=== PATIENT | female | born 1960 | race Caucasian/White ===

== ENCOUNTER 2017-06-07 14:24 | Inpatient (IN) | payer OTHER ==
[2017-06-06 22:00] VITALS: BP 127/68
[~2017-06-07] VITALS: Ht 177.8 cm; Wt 218.6 kg
[~2017-06-07 14:24] MED LIST: ALLOPURINOL 10100 M1 PO; ASPIRIN325 PO; ATORVASTATIN CA10 MG PO; COZAAR 50 MG TA50 MG PO; EVISTA TRANSDERM; FLEXERIL PO; GLUCOPHAGE500 MG PO; HYDROCHLOROTHIA25 M1 PO; IMDUR 30 MG TAB30 M1 PO; K-Dur PO; LASIX 40 MG TAB40 M1 PO; LASIX 80 MG TAB80 M1 PO; LEVOTHYROXINE0.2 M1 PO; MAGNES PO; MAGNESIUM OXID200 MG PO; METOPROLOL SUCC25 M1 PO; MOBIC7.5 MG; MOBIC7.5 MG PO; NEURONTIN600 MG PO; NITROGLYCERIN0.4 MG SL; NORCO 10-325 T1 EACH PO; NORCO 5-325 TA1 EACH PO; PERCOCET 10-321 EACH PO; SAVELLA12.5 MG PO; SAVELLA50 MG PO; SYNTHROID300 MCG PO; TEGRETOL XR100 MG PO; ULTRAM 50MG TAB50 MG PO; VERAPAMIL E.R240 M1 PO; VERAPAMIL ER180 MG PO; WELLBUTRIN SR150 MG PO; XANAX 0.25 MG0.25 MG PO; XANAX 0.5 MG0.5 M1 PO; ZINC SULFATE 2220 M1 PO; [UNRECOGNIZED DRUG - OTHER] PO
[2017-06-07 14:26] VITALS: BP 101/50
[2017-06-07 15:02] LABS: HEMATOCRIT 31.9 % (37.0-47.0); MCH 22.6 pg (26.0-34.0); MCHC 31.4 g/dL (28.0-37.0); MCV 71.9 fL (80.0-100.0); MPV 8.3 fl. (7.2-11.1); NUCLEATED RBCS 0 /100WBC; PLATELET COUNT* 224 thou/uL (150-400); RBC 4.44 mil/uL (4.20-5.00); RDW-CV 17.1 % (10.5-14.5); WBC 16.7 thou/uL (4.0-11.0)
[2017-06-07 15:08] LABS: CALCIUM 8.2 mg/dL (8.5-10.1); CREATININE 3.4 mg/dL (0.6-1.3); POTASSIUM 3.3 mmol/L (3.5-5.1)
[2017-06-07 15:10] LABS: APTT 33.9 Seconds (25.0-31.3); INR 1.1; PROTIME 10.4 Seconds (9.20-11.50)
[2017-06-07 15:13] LABS: ALBUMIN 2.3 g/dL (3.4-5.0); TOTAL BILIRUBIN 0.5 mg/dL (<0.1-1.0); TOTAL PROTEIN 6.9 g/dL (6.4-8.2)
--- NOTE | 2017-06-07 15:32 | EKG ---
[place] [address] ELECTROCARDIOGRAM REPORT Name: EDUARDO RICE Room: [facility]#: [id number] Admission: 06/07/17 Attend Phys: Discharge: Date of : 58 Report #: [id number] THIS REPORT FOR: //name// [facility] ED Test Date: 2017-06-07 Test Time: 14:33:10 Pat Name: EDUARDO RICE Department: Room: Gender: F Strawhat Sizer: Jorge BANKS : 1960 Requested By: Gerard Morales Order Number: [id number] Reading MD: Everett Anthony Measurements Intervals [place] Rate: 121 P: CT: QRS: 17 QRSD: 94 T: -6 QT: 343 QTc: 487 Interpretive Statements sinus tachycardia Borderline T abnormalities, inferior leads Borderline prolonged QT interval No previous ECG available for comparison Electronically Signed On 06-07-2017 15:31:56 CDT by Everett Anthony [email or web address] <ELECTRONICALLY SIGNED> By: Everett Anthony MD, [facility] 06/07/17 1531 1433 1433 Everett Anthony MD, FACC /EPI
[2017-06-07 15:35] LABS: ABSOLUTE LYMPHOCYTES 0.7 thou/uL (0.8-5.3); ABSOLUTE MONOCYTES 0.7 thou/uL (0.0-1.2); ABSOLUTE NEUTROPHILS 15.4 thou/uL (1.6-8.1)
[2017-06-07 15:36] LABS: HYPOCHROMASIA 2+; MICROCYTES 2+; PLATELET ESTIMATE ADEQUATE
[2017-06-07 15:37] LABS: ANISOCYTOSIS 1+; OVALOCYTES Occasional; POLYCHROMASIA Occasional
--- NOTE | 2017-06-07 16:07 | NUR ---
PER DR. JOHNSON HOLD FENTANYL DUE TO LOW B/P.
[2017-06-07 18:20] VITALS: BP 89/34
[2017-06-07 18:23] LABS: INFLUENZA A ANTIGEN None Detected (None Detect); INFLUENZA B ANTIGEN None Detected (None Detect)
--- NOTE | 2017-06-07 19:10 | NUR ---
PT ARRIVED ON THE UNIT AT 1825. REPORT GIVEN TO ROMAIN BUTT. ASSESSED PT AND DOCUMENTED. PT IS A&O AND ON 4L . PT IS ON FALL PRECAUTIONS PER FACILITY PROTOCOL. PT C/O PAIN RATED A 7 IN HER BACK. BED IS IN LOW POSITION CALL LIGHT IS IN REACH. FALL CONTRACT AND PT MEDICARE RIGHTS SIGNED.
[2017-06-07 19:30] VITALS: BP 86/47
[2017-06-07 20:30] VITALS: BP 124/60
[2017-06-07 21:00] VITALS: BP 127/68
[2017-06-07 23:00] VITALS: BP 113/87
--- NOTE | 2017-06-07 23:18 | NUR ---
PT UNABLE TO VOID ON BED AL. GILBERT CATHETER PLACED. 1400 MLS OF DRK CLOUDY URINE. UA COLLECTED AND SENT TO LAB.
[2017-06-07 23:22] LABS: URINE BILIRUBIN NEGATIVE (Negative); URINE BLOOD 3+ (Negative); URINE CLARITY CLOUDY; URINE COLOR YELLOW; URINE GLUCOSE-RANDOM NEGATIVE (Negative); URINE KETONES NEGATIVE (Negative); URINE PROTEIN 1+ (Negative); URINE UROBILINOGEN 0.2 E.U./dl (0.2-1.0)
[2017-06-07 23:23] LABS: URINE LEUKOCYTES-REFLEX 3+ (Negative); URINE NITRITE-REFLEX POSITIVE (Negative)
[2017-06-07 23:30] LABS: BACTERIA-REFLEX 1-9 Few /HPF (None Seen); CASTS None Seen /LPF (None Seen); MUCUS None Seen strn/LPF (None Seen); SQUAMOUS 4-10 Moderate /LPF (0-3); URINE RBC >20 Many /HPF (0-2); WBC CLUMPS Few (None Seen)
[2017-06-07 23:31] LABS: AMORPHOUS URATES Moderate /LPF (None Seen)
[2017-06-08] VITALS (18 sets, daily range): BP systolic 83–212; BP diastolic 46–84
--- NOTE | 2017-06-08 04:50 | NUR ---
PT ALERT ORIENTED. UA + FOR UTI. DR MCMAHON NOTIFIED VIA YOU CALL MD. NO NEW ORDERS AT THIS TIME. LEVOPHED AT 5 MCG. TITRATED BETWEEN 4-6 MCG SINCE 1930. SBP LOW 100S. NS GIVEN TIMES 3 LITERS THEN 1 LITER AT 150MLS/HR. THEN TKO. PT TURNS SELF. REFUSED SCDS AND BARIATRIC BED. TELEMETRY SHOWS SR.
[2017-06-08 05:14] LABS: ABSOLUTE BASOPHILS 0.1 thou/uL (0.0-0.2); ABSOLUTE LYMPHOCYTES 1.1 thou/uL (0.8-5.3); ABSOLUTE MONOCYTES 1.9 thou/uL (0.0-1.2); ABSOLUTE NEUTROPHILS 13.1 thou/uL (1.6-8.1); BASOPHILS 0.3 %; EOSINOPHILS 0.1 %; HEMATOCRIT 28.9 % (37.0-47.0); HEMOGLOBIN 9.3 gm/dL (12.0-15.0); LYMPHOCYTES 6.8 %; MCH 22.8 pg (26.0-34.0); MCV 71.3 fL (80.0-100.0); MONOCYTES 11.9 %; MPV 8.7 fl. (7.2-11.1); NUCLEATED RBCS 0 /100WBC; PLATELET COUNT* 220 thou/uL (150-400); POLYS 80.9 %; RBC 4.05 mil/uL (4.20-5.00); RDW-CV 17.1 % (10.5-14.5); WBC 16.2 thou/uL (4.0-11.0)
[2017-06-08 05:26] LABS: ALBUMIN 2.1 g/dL (3.4-5.0); CALCIUM 7.6 mg/dL (8.5-10.1); CREATININE 2.8 mg/dL (0.6-1.3); MAGNESIUM 1.6 mg/dL (1.8-2.4); POTASSIUM 3.5 mmol/L (3.5-5.1); TOTAL BILIRUBIN 0.3 mg/dL (<0.1-1.0); TOTAL PROTEIN 6.5 g/dL (6.4-8.2)
--- NOTE | 2017-06-08 10:46 | NUR ---
Nutrition: Pt admitted with sepsis, pneumonia. H/o DM, HTN, HLD, OBE. Wt: 450#. Ht: 5'10" On CHO controlled diet. Per ICU rounds, pt didn't eat much BKFST d/t HURTADO. Labs: BG 119, alb 2.1, prealb 9. Expect increase in po intake throughout the day. If po intake remains <50% of meals, will order Boost Glucose Control for added protein and kcals. Consider Mild risk. Will follow up on po intake and labs 06/10/17.
--- NOTE | 2017-06-08 13:28 | NUR ---
CM SPOKE TO THE RN IN-CHARGE OF THE PATIENT AND SHE INFORMS THAT THE PATIENT HAS COMPLAINED OF A HEADACHE TODAY, BUT REFUSED MEDICATION. PATIENT CURENLTLY ON 4L O2. PATIENT REFUSED BREAKFAST. CM WILL REMAIN AVAILABLE TO ASSIST AND FOLLOW NEEDED.
--- NOTE | 2017-06-08 18:37 | NUR ---
PT AOX4 THIS SHIFT PT MAINTAINING BP POST LEVO GTT BEING STOPPED PT O2 SATS IN THE 90'S THIS SHIFT ON 4L O2 PER NC PT HAS GILBERT WITH NO COMPLICATIONS AND ADEQUATE OUTPUT THIS SHIFT PT SKIN INTACT THIS SHIFT, NO GI/ COMPLAINTS THIS SHIFT PT TOLERATING DIET THIS SHIFT PT C/O PAIN THIS SHIFT, APPROPRIATELY ASKS FOR PAIN MEDICATIONS. HOURLY ROUNDING HAS BEEN MAINTAINED THIS SHIFT
[2017-06-09] VITALS (16 sets, daily range): BP systolic 102–161; BP diastolic 43–96
--- NOTE | 2017-06-09 00:04 | NUR ---
PT RANG LIGHT AND REPORTED BLADDER PAIN. CATHETER BAG APPEARED FULL. EMPTIED GILBERT BAG AND BLADDER SCAN DONE BY PATTIE PHAM RN. GILBERT IRRIGATED AND HAD GOOD RETURN. PT REPORTED FEELING RELIEF.
[2017-06-09 04:40] LABS: ABSOLUTE BASOPHILS 0.1 thou/uL (0.0-0.2); ABSOLUTE EOSINOPHILS 0.1 thou/uL (0.0-0.7); ABSOLUTE LYMPHOCYTES 1.2 thou/uL (0.8-5.3); ABSOLUTE MONOCYTES 1.4 thou/uL (0.0-1.2); ABSOLUTE NEUTROPHILS 8.6 thou/uL (1.6-8.1); HEMATOCRIT 28.3 % (37.0-47.0); HEMOGLOBIN 8.9 gm/dL (12.0-15.0); LYMPHOCYTES 10.3 %; MCH 22.6 pg (26.0-34.0); MCHC 31.4 g/dL (28.0-37.0); MCV 72.1 fL (80.0-100.0); MONOCYTES 12.1 %; MPV 8.3 fl. (7.2-11.1); NUCLEATED RBCS 0 /100WBC; PLATELET COUNT* 239 thou/uL (150-400); POLYS 75.6 %; RBC 3.93 mil/uL (4.20-5.00); RDW-CV 17.3 % (10.5-14.5); WBC 11.4 thou/uL (4.0-11.0)
--- NOTE | 2017-06-09 04:52 | NUR ---
PT'S HEART RATE INCREASED TO 140-150 FOR LESS THAN ONE MINUTE. CALLED DR OVALLE AND REPORTED HEART RATE. PT NOT TO BE TRANSFERED OUT OF ICU, CONTINUE TO MONITOR PER DR OVALLE.
[2017-06-09 04:56] LABS: CALCIUM 8.1 mg/dL (8.5-10.1); POTASSIUM 3.8 mmol/L (3.5-5.1); TOTAL BILIRUBIN 0.2 mg/dL (<0.1-1.0); TOTAL PROTEIN 6.6 g/dL (6.4-8.2)
[2017-06-09 05:01] LABS: CREATININE 1.6 mg/dL (0.6-1.3)
[2017-06-09 05:42] LABS: CALCIUM 8.1 mg/dL (8.5-10.1); CREATININE 1.6 mg/dL (0.6-1.3); POTASSIUM 3.8 mmol/L (3.5-5.1); TOTAL BILIRUBIN 0.2 mg/dL (<0.1-1.0); TOTAL PROTEIN 6.6 g/dL (6.4-8.2)
--- NOTE | 2017-06-09 10:16 | NUR ---
PT WAS NOTED TO HAVE HR 170'S TO 180'S. PT WAS GUIDED THROUGH VAGAL MANEUVERS WITHOUT ANY CHANGE IN HEART RATE. EKG ORDERED AND PT CONVERTED BACK TO ST WITH HR 105. PT APPEARED TO BE MILDLY AGITATED DURING INCREASED HEART RATE BUT DENIED CHEST PAIN, SOA, OR ANY OTHER DISCOMFORTS. PT DENIED FEELING ANY DIFFERENCE IN HEART RATE. PT NOW RESTING IN BED WITH EYES CLOSED, APPEARS TO BE COMFORTABLE, DENIES ANY NEEDS.
--- NOTE | 2017-06-09 10:19 | EKG ---
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
--- NOTE | 2017-06-09 10:51 | NUR ---
Nutrition: follow up. Pt is eating better, per ICU rounds. Remains low to mild nutrition risk. Will follow up per protocol.
--- NOTE | 2017-06-09 11:04 | NUR ---
INTERDISICPLINARY ROUNDS: MET WITH PT. SHE WAS A/O. ON O2 AND HAD EPISODE OF TACHYCARDIA PER NURSING THIS AM. PT STATES SHE LIVES WITH HER COUSIN/JASON CLAROS. THEY SHARE HOUSEHOLD DUTIES. PT'S SPOUSE IS . PT HAS A BROTHER/PATY GOLDBERG WHO IS AN TRAFFIC WORKFORCE REPRESENTATIVE THAT SHE SAYS IS HER 1ST DPOA. ONLY DPOA ON FILE IS FROM 2006, PT STATES THERE IS A NEWER ONE SINCE THEN AND SHE WILL HAVE JASON BRING IT IN. PT STATES HER BROTHER PATY GOLDBERG [phone] AND HER COUSIN ROHITH CLAROS [phone] ARE HER DPOAS. PT IS INDEPENDENT AT HOME, DRIVES. HAS WALKER AND ONE WITH A SEAT, CANE AND W/C AT HOME SHE USES NEEDED. SHE HASN'T HAD HH OR BEEN TO SNF. PT PLANS TO GO HOME AT [place]. WILL FOLLOW
--- NOTE | 2017-06-09 12:32 | CON ---
[address] [address] CONSULTATION Name: KRYSTALEDUARDO Flores Room: [address] IN M.R.#: [id number] Admission: 06/07/17 Attend Phys: Richie Burgess Discharge: Date of : 58 Report #: [id number] THIS REPORT FOR: //name// CC: Everett Purdy DATE OF SERVICE: 06/08/2017 ATTENDING PHYSICIAN: Dr. Gurinder Purdy. REASON FOR EVALUATION: Sepsis, pneumonia. HISTORY OF PRESENT ILLNESS: Chart reviewed, patient examined. This 57-year-old morbidly obese woman with diabetes mellitus type 2 who apparently had onset of illness, perhaps 10-11 days ago. She described progressive dyspnea, not a significant amount of cough, did have high-grade temperature elevations in the 102-103 range for several days, became weaker and notes some anorexia and poor p.o. intake. She was getting out of bed overnight prior to admission, fell on the floor, dragged herself to the commode; however, was unable to get up. She was there for several hours until somebody found her. She was transferred to the Emergency Room, is now in the Intensive Care Unit. She is generally lucid. She is on supplemental oxygen and supportive pressor with norepinephrine. She has been started on broad-spectrum antimicrobial therapy including levofloxacin as well as ceftriaxone and azithromycin as well. Cultures of the urine and blood are in progress. She is currently afebrile. ALLERGIES: SULFA. CURRENT MEDICATIONS: Include ipratropium and albuterol inhaler, levofloxacin, gabapentin, aspirin, levothyroxine, p.r.n. analgesics, antiemetics. PAST MEDICAL HISTORY: In addition to diabetes mellitus type 2, hypertension, morbid obesity, anxiety, asthma, bipolar disease, depression, fibromyalgia, hyperlipidemia, hypothyroidism, previous lap band surgery in 2004. SOCIAL HISTORY: Nonsmoker, no ethanol. FAMILY HISTORY: Noncontributory. REVIEW OF SYSTEMS: As above. No significant abdominal related discomfort. She has had some constipation. PHYSICAL EXAMINATION: GENERAL: She is somewhat lethargic. She does arouse. She makes eye contact. She tracks, is in moderate distress. She has nasal cannula oxygen in place. VITAL SIGNS: Temperature 98.5, pulse 100, respirations 17, [place] [address] CONSULTATION Name: EDUARDO RICE Room: [address]#: [id number] Admission: 06/07/17 Attend Phys: Richie Burgess Discharge: Date of : 58 Report #: [id number] 110/46, saturation is 93%. SKIN: Warm, dry, no rashes. HEENT: Unremarkable. NECK: Supple. LUNGS: Distant, few scattered coarse breath sounds. HEART: Distant as well. Regular, borderline tachycardic. ABDOMEN: Obese, soft. There are no peritoneal signs. GENITOURINARY: Deferred. RECTAL: Deferred. LABORATORY DATA: Initial PT 10.4, INR 1.1. Electrolytes: Sodium 130, potassium 3.3, chloride 92, bicarbonate is 26, BUN and creatinine 48 and 3.4, glucose of 127. AST of 137, ALT of 50. Estimated GFR 14. Albumin 2.3, total protein of 6.9. Lactic acid 3.0 initially, repeat was 1.5. Chest x-ray: Mild patchy bibasilar atelectasis, pneumonitis. CBC: White count of 16.7, H and H 10.0 and 31.9, platelets of 224. Influenza antigen was not detected for A or B. Urinalysis 16-25 white cells, 1-9 bacteria. Blood cultures sterile thus far. ASSESSMENT: Pneumonitis, perhaps secondary bacterial pneumonia in the setting of a previous viral respiratory tract infection. It is reasonable to continue empiric antimicrobials. We will adjust therapy. She is certainly at risk for infectious complications while residing in the hospital as well. We will have to monitor expectantly. <ELECTRONICALLY SIGNED> By: George Tuttle MD 06/09/17 1232 1032 1202Joluis Tuttle MD /nt
--- NOTE | 2017-06-09 14:40 | 2DMMODE ---
[place] [address] 2 D/M-MODE ECHOCARDIOGRAM Name: EDUARDO RICE Room: [address] IN [facility]#: [id number] Admission: 06/07/17 Attend Phys: Gurinder Purdy Discharge: Date of : 58 Date of Service: 06/09/17 1440 Report #: [id number] THIS REPORT FOR: //name// APPROVED REPORT Study performed: 06/09/2017 10:57:33 EXAM: Comprehensive 2D, Doppler, and color-flow Echocardiogram Patient Location: In-Patient Room #: 001 Status: routine BSA: 3.03 HR: 101 bpm BP: 87/28 mmHg Rhythm: NSR Other Information Technically limited study due to body habitus. Indications Dyspnea Echo Enhancing Agent Indication: Endocardial border delineation Agent(s) / Amount(s) Used: Optison 3 cc 2D Dimensions LVEF(%): 65.79 (>50%) IVSd: 15.75 (7-11mm) LVOT Diam: 21.73 (18-24mm) LVDd: 49.19 mm PWd: 15.50 (7-11mm) Ascending Ao: 32.45 (22-36mm) LVDs: 31.34 (25-40mm) Aortic Root: 38.74 mm Espino's LVEF: 65.79 % Volumes Left Atrial Volume (Systole) LA ESV Index: 28.90 mL/m2 Aortic Valve AoV Peak Dionicio.: 1.67 m/s AO Peak Gr.: 11.11 mmHg LVOT Max P.22 mmHg AO Mean Gr.: 6.45 mmHg LVOT Mean P.72 mmHg LVOT Max V: 1.34 m/s AO V2 VTI: 29.73 cm LVOT Mean V: 0.89 m/[place] [address] 2 D/M-MODE ECHOCARDIOGRAM Name: EDUARDO RICE Room: [address] IN [facility].#: [id number] Admission: 06/07/17 Attend Phys: Gurinder Purdy Discharge: Date of : 58 Date of Service: 06/09/17 1440 Report #: [id number] MONTSE (VTI): 3.02 cm2 LVOT V1 VTI: 24.21 cm Mitral Valve E/A Ratio: 1.10 MV Decel. Time: 186.22 ms MV E Max Dionicio.: 1.24 m/s MV PHT: 54.00 ms MVA (PHT): 4.07 cm2 TDI E/Lateral E': 9.54 Lateral E' Dionicio.: 0.13 m/s Pulmonary Valve PV Peak Dionicio.: 1.30 m/s PV Peak Gr.: 6.81 mmHg Left Ventricle The left ventricle is normal size. There is normal LV segmental wall motion. Moderate concentric left ventricular hypertrophy. Left ventricular systolic function is normal. The left ventricular ejection fraction is within the normal range. LVEF is 60-65%. The left ventricular diastolic function is normal. Right Ventricle The right ventricle is normal size. The right ventricular systolic function is normal. Atria The left atrium size is normal. The right atrium size is normal. Aortic Valve The aortic valve is normal in structure. No aortic regurgitation is present. There is no aortic valvular stenosis. Mitral Valve The mitral valve is normal in structure. There is no mitral valve regurgitation noted. No evidence of mitral valve stenosis. Tricuspid Valve The tricuspid valve is normal in structure. Unable to assess PA pressure. Trace tricuspid regurgitation. Pulmonic Valve The pulmonary valve is normal in structure. There is no pulmon[place] [address] 2 D/M-MODE ECHOCARDIOGRAM Name: EDUARDO RICE Room: [address] IN [facility]#: [id number] Admission: 06/07/17 Attend Phys: Gurinder Purdy Discharge: Date of : 58 Date of Service: 06/09/17 1440 Report #: [id number] Great Vessels The aortic root is normal in size. IVC is normal in size and collapses with >50% inspiration Pericardium There is no pericardial effusion. <Conclusion> LVEF is 60-65%. Moderate concentric left ventricular hypertrophy. <ELECTRONICALLY SIGNED> By: Everett Anthony MD, FACC 06/09/17 1440 144 144 Everett Anthony MD, FACC /INF
--- NOTE | 2017-06-09 18:26 | NUR ---
PT RESTLESS AT TIMES AND BECOMES MILDLY AGITATED AT ALARMS ON UNIT. PT C/O GILBERT AND WANTED IT REMOVED. GILBERT REMOVED AND PT ABLE TO URINATE IN BSC. PT HAS C/O HEADACHE ALL DAY REGARDLESS OF PAIN MED GIVEN. PT CURRENTLY APPEARS COMFORTABLE, LAYING IN BED WITH EYES CLOSED. PT ABLE TO MAKE NEEDS KNOWN, CALL LIGHT IN REACH
--- NOTE | 2017-06-09 19:42 | NUR ---
RECIEVED REPORT AND ASSUMED CARE OF PT AT 1930. PT SITTING ON BEDSIDE COMMODE. PT'S O2 OFF, SAT 78%. ATTACHED EXTENSION TUBING AND REAPPLIED O2. SAT NOW 92%. CHANGED PT'S LINENS ON BED. CALL LIGHT IN REACH, PT INSTRUCTED TO CALL WHEN GETTING UP.
--- NOTE | 2017-06-09 20:10 | NUR ---
PT RANG CALL LIGHT FOR ASSISTANCE BACK TO BED. PT ON COMMODE AT THAT TIME. PT UNABLE TO STAND AND FELL TO KNEES. PT REPORTS PAIN IN LEFT KNEE. PT GIVEN PRN NORCO. NURSING CONCILIATION COURT JUDGE JEANE LUCAS NOTIFIED. DR CARDONA NOTIFIED. RECIEVED ORDER FOR XRAY OF LEFT KNEE.
--- NOTE | 2017-06-09 22:08 | NUR ---
at 2129 pt reported chest pain. 12 lead Ekg done. result called to dr Friedman. recieved order for PRN nitro. at 2144 pt reported relief after resting, no nitro given. pt resting with ou closed at this time.
[2017-06-10] VITALS (11 sets, daily range): BP systolic 95–155; BP diastolic 47–96
[2017-06-10 03:05] LABS: ABSOLUTE BASOPHILS 0.1 thou/uL (0.0-0.2); ABSOLUTE EOSINOPHILS 0.3 thou/uL (0.0-0.7); ABSOLUTE LYMPHOCYTES 1.6 thou/uL (0.8-5.3); ABSOLUTE MONOCYTES 1.1 thou/uL (0.0-1.2); ABSOLUTE NEUTROPHILS 7.1 thou/uL (1.6-8.1); BASOPHILS 1.1 %; EOSINOPHILS 2.7 %; HEMATOCRIT 29.1 % (37.0-47.0); HEMOGLOBIN 8.9 gm/dL (12.0-15.0); LYMPHOCYTES 15.7 %; MCH 22.5 pg (26.0-34.0); MCHC 30.7 g/dL (28.0-37.0); MCV 73.4 fL (80.0-100.0); NUCLEATED RBCS 0 /100WBC; PLATELET COUNT* 290 thou/uL (150-400); POLYS 69.5 %; RBC 3.97 mil/uL (4.20-5.00); RDW-CV 17.6 % (10.5-14.5); WBC 10.3 thou/uL (4.0-11.0)
[2017-06-10 03:23] LABS: ALBUMIN 2.1 g/dL (3.4-5.0); CALCIUM 8.5 mg/dL (8.5-10.1); CREATININE 1.5 mg/dL (0.6-1.3); POTASSIUM 3.8 mmol/L (3.5-5.1); TOTAL BILIRUBIN 0.2 mg/dL (<0.1-1.0); TOTAL PROTEIN 6.6 g/dL (6.4-8.2)
--- NOTE | 2017-06-10 06:09 | NUR ---
PT RESTLESS AND IMPUSIVE DURING NIGHT. PT FREQUENTLY TAKING OFF ALL MONITOR LEADS AND SAT MONITOR. PT ALSO REMOVES O2 WHEN RESTLESS. PT ALERT AND ORIENTED X4 DURING EPISODES AND DOES NOT RING CALL LIGHT WHEN NEEDING ASSISTANCE. PT PROGRESSING TOWARD GOALS. HEART RATE < 100, BLOOD PRESSURE WITHIN NRMAL LIMITS. O2 SAT 95 -97% WITH O2 ON.
--- NOTE | 2017-06-10 08:30 | NUR ---
PT KEEPS REMOVING TELEMETRY WIRES, O2 SENSOR, AND BP CUFF.PICKED UP SEVERAL PAIRS OF WET UNDERPANTS OFF FLOOR. PERSONAL BELONGINGS SCATTERED OVER BEDSIDE TRAY AND FLOOR. PT HAD REMOVED ARM BAND.PT REMINDED NOT TO TAKE OFF NAME BAND DURING HOSPITAL STAY. PT STATES ALLL THESE NOISES ARE MAKING HER CRAZY. WILL APPROACH PRIMARY DR TO SEE IF PT MEETS CRITERIA FOR DOWN GRADE TO NEXT LEVEL OF CARE.
--- NOTE | 2017-06-10 10:00 | NUR ---
PT STATUS CHANGE TO TELEMETRY. HR DIRECTOR AWARE.
[2017-06-10 11:39] LABS: CALCIUM 8.4 mg/dL (8.5-10.1); CREATININE 1.2 mg/dL (0.6-1.3); POTASSIUM 3.8 mmol/L (3.5-5.1)
--- NOTE | 2017-06-10 15:28 | CON ---
[address] [address] CONSULTATION Name: EDUARDO RICE Flores Room: [address] IN M.R.#: [id number] Admission: 06/07/17 Attend Phys: Richie Burgess Discharge: Date of : 58 Report #: [id number] THIS REPORT FOR: //name// CC: Everett Purdy DATE OF SERVICE: 06/08/2017 REQUESTING PHYSICIAN: Gurinder Purdy DO REASON FOR CONSULTATION: Acute kidney injury. HISTORY OF PRESENT ILLNESS: The patient is a 57-year-old white female with medical history significant for morbid obesity, diabetes mellitus type 2, and chronic kidney disease stage 3. She presents to the hospital with complaints of not feeling well and shortness of breath. The patient states that the symptoms started about 10 days ago. She was seen by Dr. Christensen and she was advised to go to the Emergency Room; however, she postponed that admission until she got really worse. When she came to the hospital, she was diagnosed with pneumonia and sepsis, and was started on sepsis protocol. She was hypotensive. She was given 4 liters of fluids. Her creatinine initially was 3.4 and that has improved to 2.8 today. She had a chest x-ray done that revealed cardiomegaly, elevation of the right hemidiaphragm, and mild patchy bibasilar atelectasis/pneumonitis. Her white count was elevated at 16,300 with 92% segs on the differential. PAST MEDICAL HISTORY: 1. Morbid obesity. 2. Diabetes mellitus type 2. 3. Cardiomyopathy. 4. Chronic kidney disease stage 3. FAMILY HISTORY: Noncontributory. SOCIAL HISTORY: No tobacco or alcohol abuse. MEDICATIONS PRIOR TO ADMISSION: Reviewed. From my standpoint, she was on hydrochlorothiazide 25 mg a day, losartan 50 mg a day, allopurinol 100 mg a day, and metformin. REVIEW OF SYSTEMS: Positive for shortness of breath, weakness, and cough. Denies changes in visual acuity or hearing acuity. Denies being depressed. She states [place] [address] CONSULTATION Name: EDUARDO RICE Room: [address]#: [id number] Admission: 06/07/17 Attend Phys: Richie Burgess Discharge: Date of : 58 Report #: [id number] PHYSICAL EXAMINATION: GENERAL: She is awake, alert, and oriented. She is morbidly obese. VITAL SIGNS: Her blood pressure 155/77, but it was as high as 212/71 earlier, but prior to that on admission, it was as low as 77/41. HEENT: Pupils are round. NECK: Fatty. LUNGS: Decreased air movement. CARDIOVASCULAR: No rub. ABDOMEN: Very obese. LOWER EXTREMITIES: Trace edema. LABORATORY REPORT: As I mentioned earlier. ASSESSMENT: A 57-year-old female admitted with respiratory distress, diagnosed with pneumonitis. She was hypotensive. She was given fluids and antibiotics. She feels better now. She developed acute kidney injury due to under-perfusion of the kidney due to the septic process due to pneumonitis. PLAN: Overall, she is somewhat better. Renal functions are improving. She states that she feels better. She has good p.o. intake. She is off of pressors. We will continue to monitor. Continue oral hydration and antibiotics. Thank you very much for asking my opinion on acute kidney injury on the patient. We will follow with you closely. <ELECTRONICALLY SIGNED> By: Christo Padron MD 06/10/17 1528 1559 [id number] Padron MD /nt
--- NOTE | 2017-06-10 16:36 | EKG ---
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: MR : 1960 Requested By: Gurinder Purdy Order Number: [id number] Douglas MD: Brandan Lynn Measurements Intervals [place] Rate: 91 P: 54 [place]: 155 QRS: 18 QRSD: 110 T: 6 QT: 370 QTc: 456 Interpretive Statements Sinus rhythm Baseline wander in lead(s) V2,V3 Compared to ECG 06/09/2017 09:52:17 Sinus tachycardia no longer present Electronically Signed On 06-10-2017 16:35:48 CDT by Brandan Lynn [email or web address] <ELECTRONICALLY SIGNED> By: Brandan Lynn MD, [facility] 06/10/17 1635 2138 37 Brandan Lynn MD, [facility] /EPI
--- NOTE | 2017-06-10 18:47 | NUR ---
PT DOING WELL. PT HAS HAD 2 EPISODES OF BLADDER INC IN BED. NOTED THAT PT WSAS GETTING UP TO BSC WITH SB ASSIT. SISTER IN ROOM PT HAD NEED ASSIST TIMES 1 TO BSC, PT IS A POOR EATER. IVAB GIVEN EARLIER IN SHIFT. PT XANAX RESUMMED. PT HAS HAD NO EPISODES OF SVT THIS SHIFT. PT IS PROGRESSING TOWARDS DISCHARGE GOALS.
[2017-06-11] VITALS: BP 128/72
[2017-06-11 04:57] LABS: HEMATOCRIT 29.2 % (37.0-47.0); HEMOGLOBIN 9.1 gm/dL (12.0-15.0); MCH 22.7 pg (26.0-34.0); MCV 73.1 fL (80.0-100.0); NUCLEATED RBCS 0 /100WBC; RBC 3.99 mil/uL (4.20-5.00); RDW-CV 17.6 % (10.5-14.5); WBC 10.9 thou/uL (4.0-11.0)
--- NOTE | 2017-06-11 05:02 | NUR ---
RECEIVED REPORT FROM ROMAIN NOYOLA AROUND 1949. BROUGHT PT AND BELONGINS UP TO 222 VIA BED. PT A/OX2-3, PLEASANT AT FIRST AND LAUGHING WITH STAFF. PT LATER BECAME FRUSTRATED AND WAS YELLING AT STAFF STATING SHE WAS FEELING ANXIOUS (AFTER PO XANAX HAD BEEN GIVEN) BECAUSE OF "ALL THE WIRES". PT SEEMED TO BE TALKING ABOUT THE TELE MONITOR AND LEFT IJ. PT HAD REMOVED TELE PACK AND WAS SITTING ON THE EDGE OF THE BED ASKING TO GET DRESSED. WHEN ASKED WHAT SHE WANTED TO DO OR WHAT SHE NEEDED PT WOULDN'T RESPOND AND WOULD THEN BECOME FRUSTRATED. PT SAID SHE WAS UPSET HER COUSIN DIDN'T COME UP TO SEE HER TONIGHT AND ASKED FOR A PHONE. THIS RN ASKED IF SHE HAD ONE IN HER BAG AND PT YELLED,"IF I HAD ONE, I WOULD BE USING IT WOULDN'T I? 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 PT SEEMED TO CALM DOWN SOME BUT REFUSED TO HAVE BEDALARM IN PLACE. EDUCATION DONE ON SAFETY AND HOSPITAL PROTOCOLS. SECURITY NOTIFIED ABOUT OUTBURST. PT REFUSED TO WEAR TELE MONITOR REST OF SHIFT. AROUND 0300, PT CALLED OUT STATING SHE HAD BLOOD ALL OVER. PT TOLD THIS RN SHE HAD PULLED OUT HER LINE AND SAID "I TOLD YOU I WOULDN'T BE HAPPY UNLESS THE CORDS WERE GONE." PIV IN PLACE IN RIGHT AC. PT UP SELF WITH WALKER, EDUCATED TO CALL STAFF WHEN GOING TO [place] BUT PT DOES NOT. ON ROOM AIR. VSS. TELE HAD BEEN TRACING SR/PVC'S. SEE OTHER CHARTING. CALL LIGHT IN REACH, WILL CONTINUE WITH PLAN OF CARE.
[2017-06-11 05:20] LABS: ALBUMIN 2.1 g/dL (3.4-5.0); CALCIUM 8.8 mg/dL (8.5-10.1); CREATININE 1.1 mg/dL (0.6-1.3); POTASSIUM 3.8 mmol/L (3.5-5.1); TOTAL BILIRUBIN 0.2 mg/dL (<0.1-1.0); TOTAL PROTEIN 6.3 g/dL (6.4-8.2)
[2017-06-11 05:34] LABS: PLATELET COUNT* 375 thou/uL (150-400)
[2017-06-11 06:49] LABS: ABSOLUTE BASOPHILS 0.1 thou/uL (0.0-0.2); ABSOLUTE EOSINOPHILS 0.4 thou/uL (0.0-0.7); ABSOLUTE LYMPHOCYTES 2.1 thou/uL (0.8-5.3); ABSOLUTE MONOCYTES 0.5 thou/uL (0.0-1.2); ABSOLUTE NEUTROPHILS 7.7 thou/uL (1.6-8.1); ANISOCYTOSIS 2+; HYPOCHROMASIA 2+; METAMYELOCYTES 2 %; MICROCYTES 1+
[2017-06-11 07:30] VITALS: BP 121/59
[2017-06-11 11:27] VITALS: BP 128/54
--- NOTE | 2017-06-11 11:41 | NUR ---
Spoke with Pt and family in room. Requesting a wc and commode at [place]. Waiting to hear back from Chel at [facility] to determine if Pt is eligible. Family also requesting HH for Pt at [place], Pt wants to use [facility], nursing, PT/OT, aide. CM will fax dc orders once available. [facility] p:[phone] f:[phone]
--- NOTE | 2017-06-11 12:14 | NUR ---
RECEIVED PT CARE 0700. PT IS ALERT AND ORIENTED X4. VSS. REFUSING TO WEAR THE GREEN BUILDING ARCHITECT. SHE DENIES ANY SOA. O2 SAT 97% ON ROOM AIR. PATIENT FRUSTRATED THAT HER COUSIN TOOK HER CELL PHONE HOME AND SHE HAS NO PHONE NUMBERS TO CONTACT ANYONE. WE WERE ABLE TO CALL HER COUSIN AND TRANSFER THE CALL INTO THE PATIENTS ROOM TO HELP EASE SOME OF HER ANXIETY THIS AM. AM ASSESSMENT CHARTED. MEDS PER MAY. PLANNING FOR DC TO HOME THIS AFTERNOON. OCCUPATIONAL THERAPY IN TO WORK WITH PATIENT THIS AM. SHE IS REFUSING ALL FALL PRECAUTIONS AT THIS TIME. EDUCATION GIVEN. WILL CONTINUE TO MONITOR.
[2017-06-11] MEDS ORDERED: CEFUROXIME500 MG PO (13:03)
[2017-06-11 13:05] VITALS: BP 128/54
[2017-06-11] MEDS ORDERED: MEDROLDOSEPACK PO (13:05)
--- NOTE | 2017-06-11 14:47 | NUR ---
RECEIVED DISCHARGE ORDERS PER DR MCMAHON. PERIPHERAL IV DISCONTINUED. NEW SCRIPTS GIVEN WITH MEDICATION INFORMATION SHEETS. EDUCATED PT ON F/U APPT WITH HER PRIMARY DR AND HOME MEDICATIONS. PATIENTS COUSIN TRANSPORTING PATIENT HOME, SHE BROUGHT CLOTHES FOR PATIENT AND HELPED THE PATIENT GET DRESSED. PATIENT LIVES AT HOME WITH HER COUSIN. EDUCATED PT ON SIGNS AND SYMPTOMS TO MONITOR POST DC. PATIENT VERBALIZED UNDERSTANDING. SHE DENIES ANY QUESTIONS OR CONCERNS. SHE IS LEAVING VIA WHEELCHAIR ACCOMPANIED BY NURSING STAFF AND HER PATIENT'S COUSIN. ALL BELONGINGS ARE PACKED AND LEAVING WITH PATIENT.
--- NOTE | 2017-06-11 15:53 | NUR ---
PT DISCHARGED PRIOR TO COMPLETION OF EVAL.
== END 2017-06-11 14:50 | disposition home health service (06) | DRG 871 ==
LOC: M.ERS 14:24 → M.ICU 15:38 → M.TBA-ER 15:38 → M.ICU 18:32 → M.2W 06-10 20:51
PROVIDERS: Emergency Medicine Emergency Medical Services; Internal Medicine Nephrology; ADMIT Internal Medicine
PROC: 02H633Z Insertion of Infusion Device into Right Atrium, Percutaneous Approach (ICD-10-PCS; principal; 2017-06-07)
PROC: B24BZZ4 Ultrasonography of Heart with Aorta, Transesophageal (ICD-10-PCS; 2017-06-09)
DX: A41.9 Sepsis, unspecified organism (principal); J18.9 Pneumonia, unspecified organism; N17.0 Acute kidney failure with tubular necrosis; Z68.44 Body mass index [BMI] 60.0-69.9, adult; I42.9 Cardiomyopathy, unspecified; N18.5 Chronic kidney disease, stage 5; I12.0 Hypertensive chronic kidney disease with stage 5 chronic kidney disease or end stage renal disease; E87.1 Hypo-osmolality and hyponatremia; N39.0 Urinary tract infection, site not specified; E44.0 Moderate protein-calorie malnutrition; E66.01 Morbid (severe) obesity due to excess calories; Z98.84 Bariatric surgery status; M25.562 Pain in left knee; D64.9 Anemia, unspecified; K75.9 Inflammatory liver disease, unspecified; F41.9 Anxiety disorder, unspecified; J45.909 Unspecified asthma, uncomplicated; F31.9 Bipolar disorder, unspecified; E11.65 Type 2 diabetes mellitus with hyperglycemia; E11.22 Type 2 diabetes mellitus with diabetic chronic kidney disease; E87.6 Hypokalemia; G47.33 Obstructive sleep apnea (adult) (pediatric); R33.9 Retention of urine, unspecified; M79.7 Fibromyalgia; E78.5 Hyperlipidemia, unspecified; E03.9 Hypothyroidism, unspecified; Z79.82 Long term (current) use of aspirin; Z79.899 Other long term (current) drug therapy; Z88.2 Allergy status to sulfonamides; Z91.048 Other nonmedicinal substance allergy status

== ENCOUNTER 2019-02-10 12:55 | Emergency (ER) | payer OTHER ==
[~2019-02-10] VITALS: Ht 177.8 cm; Wt 221.4 kg
[~2019-02-10 12:55] MED LIST changes: +CEFUROXIME500 MG PO; +MEDROLDOSEPACK PO
[2019-02-10 13:47] LABS: ABSOLUTE BASOPHILS 0.1 thou/uL (0.0-0.2); ABSOLUTE EOSINOPHILS 0.1 thou/uL (0.0-0.7); ABSOLUTE MONOCYTES 0.5 thou/uL (0.0-1.2); ABSOLUTE NEUTROPHILS 5.6 thou/uL (1.6-8.1); BASOPHILS 0.7 %; EOSINOPHILS 1.6 %; HEMATOCRIT 29.9 % (37.0-47.0); HEMOGLOBIN 9.3 gm/dL (12.0-15.0); LYMPHOCYTES 14.3 %; MCH 20.9 pg (26.0-34.0); MCHC 31.1 g/dL (28.0-37.0); MCV 67.2 fL (80.0-100.0); MONOCYTES 6.4 %; MPV 7.3 fl. (7.2-11.1); NUCLEATED RBCS 0 /100WBC; PLATELET COUNT* 429 thou/uL (150-400); RBC 4.45 mil/uL (4.20-5.00); RDW-CV 18.4 % (10.5-14.5); WBC 7.2 thou/uL (4.0-11.0)
[2019-02-10 13:58] LABS: CALCIUM 8.6 mg/dL (8.5-10.1); CREATININE 1.9 mg/dL (0.6-1.3); POTASSIUM 4.3 mmol/L (3.5-5.1)
[2019-02-10 14:00] LABS: APTT 28.5 Seconds (25.0-31.3); PROTIME 10.7 Seconds (9.20-11.50)
[2019-02-10 14:09] LABS: ALBUMIN 3.3 g/dL (3.4-5.0); TOTAL BILIRUBIN 0.4 mg/dL (<0.1-1.0); TOTAL PROTEIN 7.3 g/dL (6.4-8.2)
[2019-02-10] MEDS ORDERED: AMOXICILLIN 50500 MG PO (14:26)
[2019-02-10 14:31] LABS: ANISOCYTOSIS 1+; MICROCYTES 1+; PLATELET ESTIMATE INCREASED
[2019-02-10 14:34] LABS: HYPOCHROMASIA 1+
[2019-02-10 14:59] VITALS: BP 98/49
--- NOTE | 2019-02-10 19:57 | EKG ---
[place] [address] ELECTROCARDIOGRAM REPORT Name: EDUARDO RICE Room: [facility]#: [id number] Admission: 02/10/19 Attend Phys: Discharge: 02/10/19 Date of : 58 Report #: [id number] THIS REPORT FOR: //name// [facility] ED Test Date: 2019-02-10 Test Time: 13:31:55 Pat Name: EDUARDO RICE Department: Room: Gender: F [employer]: : 1960 Requested By: Yobani Suarez Order Number: [id number] MD: Brandan Lynn Measurements Intervals [place] Rate: 79 P: 7 CA: 157 QRS: 19 QRSD: 113 T: 5 QT: 416 QTc: 477 Interpretive Statements Sinus rhythm Borderline low voltage, extremity leads Compared to ECG 06/09/2017 21:38:45 No significant changes Electronically Signed On 02-10-2019 19:57:17 [employer] by Brandan Lynn [email or web address] <ELECTRONICALLY SIGNED> By: Brandan Lynn MD, [facility] 02/10/191956 1331 1331 Brandan Lynn MD, FACC /EPI
== END 2019-02-10 15:00 | disposition home or self-care (01) ==
LOC: M.ERS 12:55
PROVIDERS: Family Medicine
DX: R53.1 Weakness (principal); J32.9 Chronic sinusitis, unspecified; I10 Essential (primary) hypertension; E11.9 Type 2 diabetes mellitus without complications; F41.9 Anxiety disorder, unspecified; F31.9 Bipolar disorder, unspecified; J45.909 Unspecified asthma, uncomplicated; M79.7 Fibromyalgia; E03.9 Hypothyroidism, unspecified; Z90.89 Acquired absence of other organs; Z86.018 Personal history of other benign neoplasm; Z98.84 Bariatric surgery status; Z88.2 Allergy status to sulfonamides; Z91.048 Other nonmedicinal substance allergy status